=== PATIENT | female | born 1975 | race African-American/Black ===

== ENCOUNTER 2016-07-22 05:58 | Inpatient (IN) | payer OTHER ==
[2016-07-17 20:39] LABS: HEMOGLOBIN 9.8 g/dL (12.0-16.0)
[2016-07-17 20:49] LABS: BUN (BLOOD UREA NITROGEN) 6 MG/DL (6-23); CHLORIDE, SERUM 104 MMOL/L (96-112); CO2 (CARBON DIOXIDE) 29 MMOL/L (24-34); CREATININE 0.73 MG/DL (0.55-1.02); GFR AFRICAN AMERICAN 119 ML/MIN (>=60); GFR NON AFRICAN AMERICAN 103 ML/MIN (>=60); GLUCOSE, SERUM 85 MG/DL (60-99); POTASSIUM, SERUM 3.6 MMOL/L (3.5-5.3); SODIUM, SERUM 139 MMOL/L (135-148)
--- NOTE | ~2016-07-22 | OP ---
Record Of Operation [facility] [address] [place]. [address] NAME: MIRELLA PACHECO : 77 STATUS : DIS IN PAT#: [id number] AGE: 41 ADM/REG DATE : 07/22/16 MR#: [id number] REPORT SERV DATE: 07/29/16 DICTATED BY: JOSE INTERIANO DATE: 07/22/16 REPORT STATUS : Draft TRANSCRIBED BY: MODL DATE: 07/22/16 DATE OF PROCEDURE: 07/22/2016 OPERATIVE PROCEDURE: Robotic total laparoscopic hysterectomy and bilateral salpingo- oophorectomy. PREOPERATIVE DIAGNOSES: 1. Large uterine fibroids, greater than 250 gm. 2. Menorrhagia. 3. Chronic anemia secondary to menorrhagia. POSTOPERATIVE DIAGNOSES: 1. Large uterine fibroids, greater than 250 gm. 2. Menorrhagia. 3. Chronic anemia secondary to menorrhagia. SURGEON: Jose Interiano MD. ANESTHESIA: General anesthetic. FINDINGS: The uterus was grossly enlarged with multiple fibroids. There was 1 very large fibroid on the fundal portion of the uterus but other fibroids present as well. The ovaries and tubes had some adhesive issues and a hydrosalpinx on the right, presumably due to old pelvic inflammatory disease. PROCEDURE: The patient was placed on the operating table in the supine position. After satisfactory general anesthesia, the patient was placed in the modified lithotomy position in the [place] [employer]. The abdomen was prepped and draped and the vagina was prepped. My assistant director of nursing nurse began establishing access to the peritoneum while I put in the vaginal NI device. After visualizing the cervix, the cervix was grasped with a single- tooth tenaculum and dilated to 8 mm. Uterus sounded to just over 9 cm. A medium-sized NI ring and an 8 cm long intrauterine balloon catheter was chosen for the procedure. A 0 Vicryl was placed in the cervix at 10'o clock and at 12'o clock and then the NI device was placed in the cervix. The balloon was inflated and the sutures were used to tie the NI device to the cervix at the 10'o clock and 12'o clock position. After this, Mora catheter was inserted. I then put on new gloves and went to the bedside. About this point, my assistant director of nursing RN had established a peritoneal access and had inserted the 12 mm trocar about 10 to 12 cm above the umbilicus. Stay sutures were in the fascia at this point as well. We then used the robotic laparoscope to visualize the peritoneal cavity and visualize the uterus. The #1 and #2 robotic trocars were then placed about 8 cm laterally and about 4 cm below the level of the first trocar. These being placed on the right and left side respectively. Following successful placement of these trocars, a robotic trocar for the third arm was then placed on the right side in the right lower quadrant just above the level of the anterior superior iliac crest. After successful placement of this trocar, an assistant director of nursing 8 mm trocar was placed in the left upper quadrant in the usual triangular fashion from the other trocars. Following the placement of last trocar, we then positioned the patient for docking of the robot. The robot was then docked successfully. At this point, I Record Of [place] [id number] [facility] [place]. [address] NAME: MIRELLA PACHECO : 77 STATUS : DIS IN PAT#: [id number] AGE: 41 ADM/REG DATE : 07/22/16 MR#: [id number] REPORT SERV DATE: 07/29/16 DICTATED BY: JOSE INTERIANO DATE: 07/22/16 REPORT STATUS : Draft TRANSCRIBED BY: RYLIE DATE: 07/22/16 went to the console and I put a ProGrasp in #3; a unipolar vince in #1; and a Gyrus device in #2. The uterus was seen to be very bulky and took up the majority of the space in the pelvis. This required positioning of the uterus using my third arm and the assistant director of nursing grasper to get adequate exposure. Aside of the patient's right side and incised the peritoneum between the round ligament and infundibulopelvic ligament pedicle. This space was opened up, developed, and then a window made in the posterior loops of the round ligament on the right. The uterus was identified and then the uterine artery pedicle skeletonized on the right. The uterine artery pedicle on the right was then carefully desiccated with the Gyrus device and divided with unipolar vince. Vesicouterine peritoneum was then incised to the midline on the right side, avascular tissue of the broad ligament was incised with unipolar vince, and the posterior leaflet of the broad ligament incised down towards the cervix. Following completion of these steps, we turned to the left side where the exact same procedure was performed on the left in the same sequence. Following this, the bladder was advanced off the low cervix and down off the upper vagina. The uterine artery pedicles were skeletonized bilaterally. The uterine artery pedicles were desiccated triply on both sides with a Gyrus device after which they divided with unipolar vince angling the Gyrus device in a more vertical direction, the cardinal ligament complexes triply desiccated and divided bilaterally. We continued the desiccation revision down to the level of the NI ring on both sides of the cervix. At this point, the pelvis was inspected and bleeding had been relatively minimal. The uterus was bulky and we anticipated difficulty removing it from the pelvis. The unipolar vince was then used to cut down on the NI ring anteriorly along this laterally as far as possible and then I went behind the uterus and incised the remainder of the vaginal cuff against the NI ring. The uterus is now free. The uterus could not be removed despite multiple attempts through the vagina because of its bulk. One fibroid was enucleated using graspers with traction to counter traction and unipolar vince to enucleate it. The uterus still could not be removed due to its bulk. At this point, I left the robotic console, scrubbed and put on gown and gloves and we undocked the robot and I went vaginally where I morcellated the uterus vaginally to remove all of the uterus and fibroids in this manner. Following complete morcellization of the uterus, then I removed my gown and gloves and went to the robotic console. We docked the robot again. We had left 1 fibroid in the abdomen, which I had enucleated earlier. This fibroid was then removed from the vagina. Then I inserted a Gyrus in port #2 and ProGrasp in #1 and inspected all pedicles and allowed the desiccated pedicles again to be safe. Following this, ProGrasp was inserted in #2 and a needle team otr truck driver in #1, 2- 0 PDS V-Loc sutures introduced and the cuff was closed from left to right without difficulty. After reaching the right side, I went back for two passes of the suture toward the midline and then cut the suture, removed the needle and suture from the abdomen. Irrigation was then performed until clear. Hemostasis was excellent. The robot was then undocked after removing the instruments. Gas was allowed to escape and the trocar sleeves were all removed. The fascia was closed at the 12 mm incision site with the sutures that had been placed at the beginning of the case, thereby securing the fascia at the 12 mm trocar with 2 interrupted sutures. The remainder of the incisions were closed with interrupted subcuticular 4-0 Monocryl Steri-Strips and dressings were applied. The patient was then returned to the supine position. Estimated blood loss was between 100 and 200 mL. The patient remained stable throughout the procedure. The sponge and needle counts were correct. The Mora was draining clear urine which was copious in amount at the end of the case. The patient was awakened from general anesthesia and transferred to the recovery in [facility] [address] [address] NAME: MIRELLA PACHECO : 77 STATUS : DIS IN PAT#: [id number] AGE: 41 ADM/REG DATE : 07/22/16 MR#: [id number] REPORT SERV DATE: 07/29/16 DICTATED BY: JOSE INTERIANO DATE: 07/22/16 REPORT STATUS : Draft TRANSCRIBED BY: RYLIE DATE: 07/22/16 good condition. DUY/RYLIE Jose Interiano MD / [id number] CC: Jose Interiano MD
[~2016-07-22 05:58] MED LIST: B12250T PO; FERROUS SULF325 M1 PO; PRINZIDE1 TAB PO; PROMETRIUM200 MG PO
[2016-07-23 04:59] LABS: HEMOGLOBIN 8.4 g/dL (12.0-16.0)
[2016-07-23 05:00] LABS: HEMATOCRIT 27.2 % (36.0-48.0)
[2016-07-23] MEDS ORDERED: NORCO1 TA1 PO (12:16)
[2016-07-23] MEDS ORDERED: ANADS PO (12:16)
[2016-07-23 14:21] LABS: HEMATOCRIT 27.9 % (36.0-48.0); HEMOGLOBIN 8.3 g/dL (12.0-16.0)
== END 2016-07-23 18:00 | disposition home or self-care (01) | DRG 743 ==
LOC: SDC/OF 05:58 → PACU 12:11 → 4EA 14:21
PROVIDERS: Obstetrics & Gynecology
PROC: 0UTC4ZZ Resection of Cervix, Percutaneous Endoscopic Approach (ICD-10-PCS; 2016-07-22)
PROC: 0UT24ZZ Resection of Bilateral Ovaries, Percutaneous Endoscopic Approach (ICD-10-PCS; 2016-07-22)
PROC: 0UT74ZZ Resection of Bilateral Fallopian Tubes, Percutaneous Endoscopic Approach (ICD-10-PCS; 2016-07-22)
PROC: 8E0W4CZ Robotic Assisted Procedure of Trunk Region, Percutaneous Endoscopic Approach (ICD-10-PCS; 2016-07-22)
PROC: 0UT94ZZ Resection of Uterus, Percutaneous Endoscopic Approach (ICD-10-PCS; principal; 2016-07-22 06:30)
DX: D25.9 Leiomyoma of uterus, unspecified (principal); D50.0 Iron deficiency anemia secondary to blood loss (chronic); N92.0 Excessive and frequent menstruation with regular cycle
CPT/HCPCS: 36415; 80048; 84703; 85014; 85018; 86850; 86900; 86901; 86920; 88307; 88311; 93005; A9270-GY; J0694; J1885; J2250; J2270; J2405; J2710; J2795; J3010